=== PATIENT | male | born 2000 | race Hispanic/Latino ===

== ENCOUNTER 2024-10-14 16:47 | Emergency (ER) | payer BC ==
[2024-10-14 17:00] VITALS: PULSE 73; RESP 18; TEMP 98.1; O2SAT 95
== END 2024-10-14 17:10 | disposition home or self-care (01) ==
LOC: FSED 16:54
DX: H93.13 Tinnitus, bilateral (principal); V73.6XXA Passenger on bus injured in collision with car, pick-up truck or van in traffic accident, initial encounter; Y92.488 Other paved roadways as the place of occurrence of the external cause
CPT/HCPCS: 99284